=== PATIENT | female | born 1955 | race Caucasian/White ===

== ENCOUNTER → 2023-08-10 12:52 | Outpatient (REF) | payer MEDICARE, BC, SELFPAY | LOC: RAD 12:52 | PROVIDERS: ATTENDING PHYSICIAN Nurse Practitioner | DX: M81.0 Age-related osteoporosis without current pathological fracture (principal) | CPT/HCPCS: 77080 ==

== ENCOUNTER → 2023-12-18 14:50 | Outpatient (REF) | payer MEDICARE, SELFPAY | LOC: RCS 14:50 | PROVIDERS: ATTENDING PHYSICIAN Internal Medicine Cardiovascular Disease | DX: I25.10 Atherosclerotic heart disease of native coronary artery without angina pectoris (principal); Z95.2 Presence of prosthetic heart valve | CPT/HCPCS: 93306 ==